=== PATIENT | female | born 1945 | race Caucasian/White ===

== ENCOUNTER 2021-04-29 12:08 | Outpatient (CLI) | payer OTHER ==
[~2021-04-29 12:08] MED LIST: CATAFLAM50 MG; COZAAR25 MG; INTEGRA PLUS CAPSULE PO; LEVAQUIN750 MG PO; MILLIPRED DP5 M1 PO; OXYC1TAB9 PO; XARELTO 10MG PO
== END 2021-04-29 12:26 | disposition home or self-care (01) ==
LOC: SONOGRAMA 12:08
PROVIDERS: ATTEND Surgery
DX: D05.12 Intraductal carcinoma in situ of left breast (principal); N60.11 Diffuse cystic mastopathy of right breast; N60.12 Diffuse cystic mastopathy of left breast

== ENCOUNTER 2021-07-08 06:39 | Day surgery (SDC) | payer OTHER ==
[~2021-07-08 06:39] MED LIST changes: +ADULT LOW DOSE81 M1 PO; +CLONAZEPAM1 MG PO; +COZAAR50 MG PO; +D3 + K2 DOTS 11 EACH PO; +FOLIC ACID0.8 M1 PO; +GABAPENTIN800 M1 PO; +MAGNESIUM500 MG PO; +METFORMIN HCL500 M3 PO; +SIMVASTATIN40 MG PO; +VITAMIN E400 UNI5 PO
== END 2021-07-08 19:00 | disposition home or self-care (01) ==
LOC: CIR.AMB 06:39
PROVIDERS: ATTEND Surgery
DX: D05.12 Intraductal carcinoma in situ of left breast (principal); D24.2 Benign neoplasm of left breast; Z20.822 Contact with and (suspected) exposure to COVID-19